=== PATIENT | male | born 1945 | race African-American/Black ===

== ENCOUNTER 2019-01-07 05:44 | Inpatient (IN) ==
--- NOTE | 2018-12-30 14:10 | EKG Report ---
Test Performed on : 12/30/2018 1:55:14 PM Test Reason : PAT Blood Pressure : / mmHG Vent. Rate : 079 BPM Atrial Rate : 079 BPM P-R Int : 160 ms QRS Dur : 080 ms QT Int : 358 ms P-R-T Axes : 078 065 071 degrees QTc Int : 410 ms Normal sinus rhythm. Normal ECG No previous ECGs available Confirmed by Braulio JENKINS, Riley ([id number]) on 12/31/2018 8:52:25 AM
[2018-12-30 14:45] LABS: BASO# 0.06 X1000 (0.0-0.2); BASO% 0.8 % (0.0-0.8); EOS# 0.11 X1000 (0.0-0.7); EOS% 1.4 % (0.0-10.0); HEMATOCRIT 26.5 % (42.0-52.0); HEMOGLOBIN 8.1 g/dL (14.0-18.0); LYMPH# 2.27 X1000 (1.2-3.4); LYMPH% 28.7 % (20.5-51.1); MCH 16.3 PG (27-31); MCHC 30.6 g/dL (33-37); MCV 53.4 FL (81-99); MONO# 0.41 X1000 (0.11-0.59); MONO% 5.2 % (1.7-9.3); MPV 9.5 FL (7.4-10.4); NEUT# 5.07 X1000 (1.4-6.5); NEUT% 63.9 % (42.2-75.2); PLT 655 X1000 (130-400); RBC 4.96 XMIL (4.7-6.1); RDW 22.1 % (11.5-14.5); WBC 7.92 X1000 (4.8-10.8)
[2018-12-30 15:16] LABS: EOS 1 % (1-10); LYMPHS 18 % (21-51); SEGS 76 % (42-75)
[2018-12-30 15:20] LABS: ANISOCYTOSIS 3+; HYPOCHROM 3+; MICROCYTOSIS 2+; TARGET CELLS 1+
[2019-01-07] MEDS ORDERED: ENTEREG ONE (06:22)
[2019-01-07] MEDS ORDERED: KEFZOL 1 GM/D5W 1 GM/50 ML IVPB ONE (06:22)
[2019-01-07] MEDS ORDERED: LR 1,000 ML ONE ×2 (06:22→06:48)
[2019-01-07] MEDS ORDERED: QUELICIN (DOSE) ONE (06:42)
[2019-01-07] MEDS ORDERED: XYLOCAINE-MPF 2% ONE (06:42)
[2019-01-07] MEDS ORDERED: FENTANYL ONE (06:43)
[2019-01-07] MEDS ORDERED: DIPRIVAN 1% ONE (06:43)
[2019-01-07] MEDS ORDERED: NORCURON ONE (06:44)
[2019-01-07] MEDS ORDERED: STERILE WATER INJ. ONE (06:44)
[2019-01-07] MEDS ORDERED: SENSORCAINE-MPF 0.5%/EPI 1:200,000 ONE (06:47)
[2019-01-07 07:23] LABS: BASO# 0.04 X1000 (0.0-0.2); BASO% 0.6 % (0.0-0.8); EOS# 0.09 X1000 (0.0-0.7); EOS% 1.4 % (0.0-10.0); HEMATOCRIT 23.7 % (42.0-52.0); HEMOGLOBIN 7.5 g/dL (14.0-18.0); LYMPH% 40.3 % (20.5-51.1); MCH 17.4 PG (27-31); MCHC 31.6 g/dL (33-37); MONO# 0.46 X1000 (0.11-0.59); MONO% 7.1 % (1.7-9.3); MPV 9.8 FL (7.4-10.4); NEUT# 3.26 X1000 (1.4-6.5); NEUT% 50.6 % (42.2-75.2); PLT 386 X1000 (130-400); RBC 4.31 XMIL (4.7-6.1); WBC 6.45 X1000 (4.8-10.8)
[2019-01-07] MEDS ORDERED: VERSED ONE (07:28)
--- NOTE | 2019-01-07 07:30 | EKG Report ---
Test Performed on : 01/07/2019 07:04:06 AM Test Reason : CAT CALL Blood Pressure : / mmHG Vent. Rate : 069 BPM Atrial Rate : 069 BPM P-R Int : 280 ms QRS Dur : 084 ms QT Int : 402 ms P-R-T Axes : 081 064 068 degrees QTc Int : 430 ms Sinus rhythm. with 1st degree AV block. Otherwise normal ECG When compared with ECG of 30-DEC-2018 13:55, DC interval has increased Confirmed by Braulio JENKINS, Riley ([id number]) on 01/07/2019 8:44:33 AM
[2019-01-07 07:36] LABS: ALB/GLOB RATIO 1.1; ALBUMIN 3.4 g/dL (3.5-5.0); CREATININE 1.4 mg/dL (0.7-1.2); POTASSIUM 4.3 mmol/L (3.5-5.1); TOTAL BILIRUBIN 0.27 mg/dL (0.20-1.00); TOTAL PROTEIN 6.6 g/dL (6.3-8.3)
--- NOTE | 2019-01-07 09:34 | Diag Imaging Result Doc PS360 ---
EXAM: CHEST-PORTABLE 01/07/2019 HISTORY: sob; anemia TECHNIQUE: AP portable at 0923 COMMENT: There are calcified nodes present in the right hilum. There is no evidence of acute cardiac or pulmonary disease. Compared to 12/11/2018 there has been no significant change in the appearance of the chest. IMPRESSION: No evidence of acute disease. Electronically signed by Usama Simmons 01/07/2019 9:31 AM
[2019-01-07] MEDS ORDERED: NS 1,000 ML IV SCH (10:00)
[2019-01-07] MEDS ORDERED: ZOFRAN IV PRN (10:00)
[2019-01-07] MEDS ORDERED: TYLENOL PO PRN (10:00)
[2019-01-07 10:08] LABS: PHOSPHORUS 3.3 mg/dL (2.7-4.5)
[2019-01-07 10:19] LABS: INR 1.1; PROTIME 15.1 Seconds (11.0-16.0); PTT 39.2 Seconds (22.3-41.8)
[2019-01-07 10:29] LABS: FREE T4 1.25 ng/dL (0.93-1.70); TSH 3.92 uIUmL (0.27-4.20)
[2019-01-07] MEDS ORDERED: NS 1,000 ML ONE (14:06)
--- NOTE | 2019-01-07 15:03 | CONSULTATION ---
DATE OF CONSULTATION: 01/07/2019 PRIMARY CARE PROVIDER: Elena Reyes. CONSULTING PHYSICIAN: Dang Morris MD. REASON FOR CONSULTATION: Abnormal labs and unstable preoperatively. HOSPITAL COURSE AND RECENT HISTORY: Mr. Lucas Dorsey is a 73-year-old - [place] male, who looks much younger than his stated age, presented to [facility] on 12/11/2018 with complaints of general abdominal pain but mostly in the right lower quadrant along with constipation. An x-ray did not show any type of constipation, but he had a chest, abdomen, and pelvis several days later performed, which showed focal marked thickening of the cecum with surrounding inflammatory changes and an adjacent loculated fluid collection consistent with a small pericolonic abscess, underlying neoplasm could not be excluded. Also, he may have even had fatty liver but that was not present in 2014. So he went for a consultation with Dr. Shipman, who put him on a clear liquid diet, did an EGD, but I do not believe it was performed here as we do not have the results here, but he states that it was done a couple of weeks ago by Dr. Shipman and was not informed of any finding. He was kept on a clear liquid diet. He was prophylactically on a proton pump inhibitor and Dr. Shipman recommended and referred him to Dr. Eleazar Morris. With the clear liquid diet, the symptoms essentially resolved with pain. Bowel movements were normal but a few days ago he says he threw up 1 time, it was Jell-O. He was lightheaded, dizzy, nauseous, and he has noticed that over the last year he is becoming much more tired, worn out, and fatigued but only recently has been having some lightheaded spells but not passing out. Today with Dr. Eleazar Morris he was planned for surgical intervention of the colon of that area and after having 4 IV sticks the patient had a temporary symptomatic almost described as vasovagal where his blood pressure dropped, he got hot, dizzy, then cold, felt like his tongue and throat were swelling, but he had not had any medication and then it resolved. Given these symptoms and his hemoglobin and hematocrit being found as low as 7.5 and 23.7 this morning, surgery is on hold for now. Will have him admitted and transfuse him at least 2 units of packed red blood cells and will put him back on a clear liquid diet but n.p.o. after midnight. He states that his bowel movements have been normal except for last night he was having diarrhea but this is without blood or any black coloration. He denies fever except for today when he had the hot spell and then the chills, and currently vital signs are stable. PAST MEDICAL HISTORY: 1. Iron-deficiency anemia. 2. BPH. 3. Hypertension. 4. Recently an area of thickening on the cecum with inflammatory changes, possible neoplasm, that is being worked up now. 5. Insomnia. PAST SURGICAL HISTORY: 1. EGD by Dr. Shipman a couple of weeks ago. 2. Back surgery. 3. Tonsillectomy. SOCIAL HISTORY: Currently smokes 3 cigarettes per day and at times more than that and at times he did quit but he has done this for at least 30+ years. Prior to 12/11, he was drinking 2-4 beers with 2-4 mixed drinks about 2 days in a week. Now, he is not drinking. He denies any illicit drug use. He is . He has 1 adult child, who is retired from [employer]. FAMILY HISTORY: Mother had dementia. Father in his 60s of a stroke, and he has 1 brother with bone cancer. ALLERGIES: No known drug allergies. HOME MEDICATIONS: 1. Ambien 2.5 mg p.o. nightly. 2. Iron supplementation 1 tablet p.o. daily. 3. Lisinopril 20 mg p.o. daily. 4. Multivitamin 1 tablet p.o. daily. 5. Omeprazole 40 mg p.o. daily. REVIEW OF SYSTEMS: A 14-point review of systems are complete and were all negative except for those mentioned above in HPI. He does have some tenderness in the right lower quadrant to mid lower quadrant with palpation but denies any nausea or any other symptoms at this time. PHYSICAL EXAMINATION: Vital signs: Temperature 97.3, heart rate 69, respiratory rate 18, blood pressure 114/62, O2 saturation 100% on room air. General: Mr. Lucas Dorsey is a 73-year-old -[place] male. He is in no acute distress. He is able to answer questions appropriately. HEENT: Atraumatic, normocephalic. Pupils equal, round, and reactive to light. Extraocular movements intact. Mucous membranes are dry. Sclera is pale. Neck: Trachea midline. Cardiovascular: S1, S2. Regular rate and rhythm. No rubs, gallops, or murmurs. No lower extremity edema. +2 dorsalis and radial pulses. Negative JVD and carotid bruits. Pulmonary: Clear to auscultate bilateral breath sounds. No accessory muscle use or work of breathing noted. GI: Soft, tender in the right lower to mid abdominal quadrant. Hyperactive bowel sounds x4. Soft. Nondistended. Extremities: Moves all extremities equally with full range of motion. Neurologic: Alert and oriented x3. Follows commands. Sensory is intact. Skin: Warm, dry, intact. LABORATORY DATA: White blood cells 6000, hemoglobin 7, hematocrit 23, platelet count 386. Sodium 128, potassium 4.3, BUN 12, creatinine is 1.4, glucose 148, calcium 9.0, bilirubin 0.27, AST 12, ALT 8, albumin 3.4, serum lactate 1.5. IMAGING: Chest x-ray: No evidence of acute disease. EKG: Normal sinus rhythm with a first-degree AV block, rate of 69, and QTc is 430. ASSESSMENT AND PLAN: 1. Area of the cecum that is abscess versus neoplasm, is suppose to go for surgery today by Dr. Morris. Had a symptomatic possible vasovagal reaction, and will hold off on surgery for now and that is the reason we were consulted. 2. Vasovagal reaction possibly due to having multiple IV sticks or due to the anemia. Those symptoms have since resolved and will monitor him on telemetry. 3. Iron-deficiency anemia. He was having diarrhea last night. He denies that there is any black stool or blood with it, so we will do iron studies and check stool for blood. He will get 2 units of packed red blood cells. 4. Benign prostatic hypertrophy noted. 5. Hypertension. Hold lisinopril for now, as he has got some possible mild acute kidney injury. 6. Likely acute kidney injury due to dehydration secondary to diarrhea last night. We will give him some IV fluids, recheck it in the morning. 7. Deep venous thrombosis prophylaxis, sequential compression devices due to the anemia. Dictated by GRACE Herrera for Vincent Mayes MD cc: GRACE Herrera MD R. Tyler Harney, MD Agree with above. the following is my own face to face assessment. Patient with near syncopal episode pre-op. slightly more anemic than his baseline and mild increase in creatinine suggesting some dehydration. little to suggest more concerning etiology at this point but will monitor on telemetry and check some other labs. will hydrate and transfuse and monitor. if no concerning findings are identified then likely ok to proceed with surgery in the morning. KELY
[2019-01-07 18:07] LABS: URINE SOURCE CLEAN CATCH
[2019-01-07 18:15] LABS: BILIRUBIN URINE NEGATIVE (NEGATIVE); BLOOD URINE NEGATIVE (NEGATIVE); COLOR YELLOW; GLUCOSE URINE NEGATIVE (NEGATIVE); KETONE URINE NEGATIVE (NEGATIVE); LEUKOCYTES URINE NEGATIVE (NEGATIVE); NITRITE URINE NEGATIVE (NEGATIVE); PH URINE 6.5; PROTEIN URINE NEGATIVE (NEGATIVE); TURBIDITY URINE CLEAR (CLEAR); UR EPITHELIAL CELLS <10 /HPF (<10); URINE BACTERIA NEGATIVE /HPF; URINE RBC <10 /HPF (<10); URINE WBC <10 /HPF (<10); UROBILINOGEN URINE NORMAL (NORMAL)
--- NOTE | 2019-01-07 19:26 | GENERAL SURGERY PROGRESS NOTE ---
DATE: 01/07/2019 SUBJECTIVE: The patient in the preoperative area this morning had a vagal episode. He was found to be anemic with elevated creatinine suggesting some degree of dehydration with hyponatremia. We elected to abort his operation today, transfuse him and hydrate him tonight and plan for an open right colectomy tomorrow. OBJECTIVE: On exam currently, his abdomen is soft. His integument is warm. He is alert. He feels much better. He is afebrile. He has had no tachycardia. His blood pressure is now 138/66, oxygen saturation 100% on room air. He did have around the time of his episode a systolic blood pressure that dropped to 90/50, but quickly rebounded to 120/67. His labs show a white count of 6, hematocrit of 23, creatinine 1.4, sodium 128. His glucoses are 140s to 160s. His LFTs are normal. Troponins are normal. Albumin level is 3.4. I reviewed the chest x-ray that shows no evidence of acute process. ASSESSMENT AND PLAN: This is a 73-year-old gentleman who was scheduled for a laparoscopic right colectomy for confirmed right cecal cancer. He was found to be anemic, dehydrated with electrolyte abnormalities and had a vagal episode. He has had no further events. He feels much better. We will transfuse 2 units of blood tonight and check his labs tomorrow and plan for an open right colectomy tomorrow. We discussed risks of bleeding, infection, damage to surrounding structures, anastomotic leak. He understands all this. We also discussed that we are going to forego a longer laparoscopic operation given his hemodynamic issues and pursue an open operation to more expeditiously take care of his issue. We will see him in the morning. cc: Dang Morris MD
[2019-01-07] MEDS ORDERED: AMBIEN PO SCH (21:00)
[2019-01-08] MEDS: PRILOSEC PO SCH ×2 (00:08→11:57)
[2019-01-08 07:10] LABS: BASO# 0.04 X1000 (0.0-0.2); BASO% 0.8 % (0.0-0.8); EOS# 0.18 X1000 (0.0-0.7); EOS% 3.4 % (0.0-10.0); HEMOGLOBIN 9.3 g/dL (14.0-18.0); LYMPH# 1.65 X1000 (1.2-3.4); LYMPH% 31.5 % (20.5-51.1); MCH 19.6 PG (27-31); MCHC 32.1 g/dL (33-37); MCV 61.1 FL (81-99); MONO% 7.6 % (1.7-9.3); NEUT# 2.96 X1000 (1.4-6.5); NEUT% 56.7 % (42.2-75.2); PLT 319 X1000 (130-400); RBC 4.75 XMIL (4.7-6.1); RDW 29.9 % (11.5-14.5); WBC 5.23 X1000 (4.8-10.8)
[2019-01-08 07:33] LABS: AGAP 9; ALBUMIN 3.2 g/dL (3.5-5.0); ALKALINE PHOSPHATASE 85 U/L (32-122); BUN 7 mg/dL (8-22); CALCIUM 8.5 mg/dL (8.8-10.2); CHLORIDE 102 mmol/L (98-107); COSMO 267; CREATININE 1.2 mg/dL (0.7-1.2); ESTIMATED GFR > 60; GLUCOSE 85 mg/dL (70-104); GOT 10 U/L (10-34); GPT 7 U/L (10-44); POTASSIUM 4.3 mmol/L (3.5-5.1); SODIUM 135 mmol/L (136-145); TCO2 24 mmol/L (25-35); TOTAL BILIRUBIN 0.68 mg/dL (0.20-1.00); TOTAL PROTEIN 6.3 g/dL (6.3-8.3)
[2019-01-08 07:55] LABS: HEMOGLOBIN A1C 4.8 % (4.8-6.0)
[2019-01-08] MEDS ORDERED: THERA M PLUS PO SCH (09:00)
[2019-01-08] MEDS ORDERED: ICAR-C PO SCH (09:00)
[2019-01-08 11:22] VITALS: BP 145/69
--- NOTE | 2019-01-08 13:43 | Diag Imaging Result Doc PS360 ---
EXAM: ABDOMEN FLAT/UPRIGHT 01/08/2019 HISTORY: abd pain TECHNIQUE: Flat and upright abdomen COMMENT: There is gas throughout the colon and small bowel. There is rotoscoliosis in the lower lumbar spine with convexity to the left. Degenerative disc changes are present at L4-5 and L5-S1. There is no evidence of organomegaly or mass. Compared to 12/11/2018 the appearance of the abdomen has not changed significantly. There is a rounded calcification over the right iliac bone which has been demonstrated to be a bone island on the CT of 12/22/2018. IMPRESSION: Nonspecific abdomen. Electronically signed by Usama Simmons 01/08/2019 1:41 PM
--- NOTE | 2019-01-09 19:04 | DISCHARGE SUMMARY ---
ADMISSION DATE: 01/07/2019 DISCHARGE DATE: 01/08/2019 DISCHARGE DIAGNOSES: 1. Iron deficiency anemia. 2. Benign prostatic hypertrophy . 3. Hypertension. 4. Possible colon neoplasm. 5. Syncopal episode vasovagal syncope. 6. Dehydration. 7. Hyponatremia . 8. Hyperglycemia . HOSPITAL COURSE: Patient is a 73-year-old white male with recently diagnosed pericolonic abscess versus mass. He was scheduled for colectomy but then had an episode of vasovagal syncope preop. On evaluation he was found to have slight worsening of his chronic anemia and mild dehydration. He was given 1 unit of blood with appropriate increase in hemoglobin and hematocrit. Hemoglobin 7.5 on admission and improved to 9.3. His creatinine was mildly elevated over baseline. With initial creatinine 1.4 with hydration has improved to 1.2 which is less than his baseline. Sodium also slightly low at 128 improved to 135 with fluids. No infection was identified. No cardiac events, dysrhythmias or other issue was found. Thyroid studies, BNP, troponin were all normal. The next day it was thought that he could likely go to surgery but due to illness of his surgeon this had to be deferred. After discussion with patient and surgery was decided to discharge patient and reschedule the procedure. Patient instructed to stay hydrated. Patient was mildly hyperglycemic on initial labs with glucose of 166 but this was never repeated and his A1c was 4.8 so he did not appear to be diabetic. DISCHARGE VITALS: Temperature 97.6 degrees, pulse 58, respirations 20, blood pressure 145/69, O2 saturation 100 percent on room air. DISCHARGE DIET: Regular. DISCHARGE MEDICATIONS: Ambien 2.5 mg p.o. at bedtime as needed, Icar C 1 tablet p.o. daily, lisinopril 20 mg p.o. daily, multivitamin daily. FOLLOWUP AND PLAN: Patient discharging home. Surgery to be rescheduled. Patient stay hydrated and continue with iron repletion. Greater than 30 minutes spent arranging discharge and counseling patient. cc: Dang Morris MD
== END 2019-01-08 14:50 | disposition home or self-care (01) | DRG 375 ==
LOC: SURHOLD 05:44 → EDSTATUS 09:30 → 4N 13:52
PROVIDERS: ADMIT Surgery; ATTEND Surgery
CPT/HCPCS: 36415; 36430; 71010; 71045; 74019; 74020; 80053; 81001; 82270; 82378; 82550; 82607; 82728; 82746; 82948; 83036; 83540; 83550; 83605; 83735; 83880; 84100; 84439; 84443; 84484; 85025; 85027; 85610; 85730; 86850; 86900; 86901; 86920; 87040; 93005; 93010; 94761; 94799; A9270; J0330; J0690; J2250; J3010; J7030; J7120; P9016; XXXXX

== ENCOUNTER 2019-01-11 04:53 | Inpatient (IN) ==
[2019-01-11] MEDS ORDERED: FENTANYL ONE (05:57)
[2019-01-11] MEDS ORDERED: DIPRIVAN 1% ONE (05:57)
[2019-01-11] MEDS ORDERED: NEO-SYNEPHRINE ONE ×2 (06:06→06:08)
[2019-01-11] MEDS ORDERED: STERILE WATER INJ. ONE ×2 (06:06→06:08)
[2019-01-11] MEDS ORDERED: NORCURON ONE (06:06)
[2019-01-11] MEDS ORDERED: ZOFRAN ONE (06:06)
[2019-01-11] MEDS ORDERED: ROBINUL ONE (06:06)
[2019-01-11] MEDS ORDERED: DECADRON ONE (06:06)
[2019-01-11] MEDS ORDERED: OFIRMEV 1000 MG/ISOTONIC SOLN 1,000 MG/100 ML BOTTLE ONE (06:06)
[2019-01-11] MEDS ORDERED: XYLOCAINE-MPF 2% ONE (06:06)
[2019-01-11] MEDS ORDERED: QUELICIN (DOSE) ONE (06:06)
[2019-01-11] MEDS ORDERED: NEOSTIGMINE ONE (06:07)
[2019-01-11] MEDS ORDERED: KEFZOL 1 GM/D5W 1 GM/50 ML IVPB ONE (06:34)
[2019-01-11] MEDS ORDERED: LR 1,000 ML ONE ×2 (06:34→09:46)
[2019-01-11] MEDS ORDERED: SODIUM CHLORIDE 0.9% 10 ML ONE (06:54)
[2019-01-11] MEDS ORDERED: MARCAINE 0.5% ONE (06:54)
[2019-01-11] MEDS ORDERED: EXPAREL 1.3% ONE (06:55)
[2019-01-11] MEDS ORDERED: ENTEREG ONE (07:05)
[2019-01-11] MEDS ORDERED: ATROPINE ONE (07:50)
[2019-01-11] MEDS ORDERED: DILAUDID ONE (07:56)
[2019-01-11 08:31] LABS: URINE SOURCE CATH
[2019-01-11 08:35] LABS: BILIRUBIN URINE NEGATIVE (NEGATIVE); BLOOD URINE NEGATIVE (NEGATIVE); COLOR YELLOW; GLUCOSE URINE NEGATIVE (NEGATIVE); KETONE URINE NEGATIVE (NEGATIVE); LEUKOCYTES URINE NEGATIVE (NEGATIVE); NITRITE URINE NEGATIVE (NEGATIVE); PROTEIN URINE 30 mg/dL (NEGATIVE); SP GRAVITY URINE 1.016; TURBIDITY URINE HAZY (CLEAR); UROBILINOGEN URINE NORMAL (NORMAL)
[2019-01-11 08:36] LABS: UR EPITHELIAL CELLS <10 /HPF (<10); URINE BACTERIA NEGATIVE /HPF; URINE WBC <10 /HPF (<10)
[2019-01-11] MEDS: DILAUDID ONE ×6 (09:54→23:18)
[2019-01-11] MEDS ORDERED: ZOFRAN IV PRN (10:52)
[2019-01-11] MEDS: OFIRMEV 1000 MG/ISOTONIC SOLN 1,000 MG/100 ML BOTTLE IV SCH ×2 (13:24→19:42)
--- NOTE | 2019-01-11 17:32 | OPERATIVE NOTE ---
PROCEDURE DATE: 01/11/2019 PREOPERATIVE DIAGNOSIS: Right cecal cancer. POSTOPERATIVE DIAGNOSIS: Right cecal cancer. PROCEDURE PERFORMED: Open right hemicolectomy with partial resection of abdominal wall and partial omentectomy. ANESTHESIA: General with a TAP block. INDICATIONS: This is a 73-year-old gentleman who had an ascending colon mass in the cecum consistent with an invasive adenocarcinoma. No evidence of widely metastatic disease. OPERATIVE FINDINGS: There was a large inflammatory tumor in the cecum adherent to the lateral sidewall of the abdomen with omental adhesions to this. Large adenopathy noted. No evidence of widely metastatic disease. There was focal perforation contained within the abdominal wall as well. OPERATIVE NOTE: Risks, benefits, alternatives discussed with patient and he consented to the procedure. He was seen preoperatively and surgical site was confirmed and marked. He was taken to the operating room and placed in supine position. General anesthesia induced without complication. Lewis catheter was placed. His abdomen was prepped with chlorhexidine solution after a TAP block was performed by Anesthesia with Exparel and he was draped in usual fashion. After time-out, we made a midline incision, carried this down through the fascia, incised the fascia, and opened the abdomen in an open controlled fashion, protecting the underlying bowel. We palpated the abdomen, there was no metastatic disease. We placed an Cruzito wound protector and begin mobilizing the tumor, which was adherent laterally. We did have to resect some of the posterior abdominal wall muscle to provide an en-bloc resection but we were able to do this successfully. We did encounter some purulent fluid that was contained within this pocket. Continued our mobilization around the hepatic flexure, mobilizing the right colon out of the wound, and then scored the mesentery, identifying the ileocolic pedicle. We divided this highly at the level the duodenum, protecting the duodenum. There were some nodes here that we identified, performing a complete lymphadenectomy here. Prior to dividing the ileocolic pedicle, we did confirm that we had maintained SMA pulse, we did. We continued our lymphadenectomy to our proximal and distal transection point with LigaSure and then using an 80 mm blue load staple we created a stapled [id number] common enterotomy and with a 2nd and 3rd fire, we closed the enterotomy and resected the specimen. The epiploic fat and omentum was mobilized off the colon prior to. Both the ileum and the colon had pulsatile bleeding that we controlled with sutures. We imbricated the corners and over sewed our staple line in an imbricating fashion, closed the mesenteric defect, placed it back in the right upper quadrant. Irrigated the abdomen, noting hemostasis. Everything aligned in neutral position with no kinking. The small bowel was placed in neutral position. The omentum was placed over this. We changed our gloves, removed the Cruzito, closed the fascia with a #1 running looped PDS suture. Skin was closed with surgical clips. A dressing was applied. He tolerated it well. Counts were correct. He was woken and transferred to recovery. I spoke with family. cc: Dang Morris MD MTDD
[2019-01-11] MEDS: PERIDEX MT SCH ×2 (19:42→23:18)
[2019-01-12] MEDS: OFIRMEV 1000 MG/ISOTONIC SOLN 1,000 MG/100 ML BOTTLE IV SCH ×2 (00:43→08:03)
[2019-01-12] MEDS: LR 1,000 ML IV SCH ×2 (00:43→01:41)
[2019-01-12] MEDS: ULTRAM PO PRN ×2 (05:08→20:01)
[2019-01-12] MEDS: PROTONIX PO SCH ×2 (05:08→07:28)
[2019-01-12 07:04] LABS: HEMATOCRIT 31.6 % (42.0-52.0); HEMOGLOBIN 10.3 g/dL (14.0-18.0); MCH 19.8 PG (27-31); MCHC 32.6 g/dL (33-37); MCV 60.9 FL (81-99); MPV 9.9 FL (7.4-10.4); RBC 5.19 XMIL (4.7-6.1); RDW 30.2 % (11.5-14.5); WBC 8.83 X1000 (4.8-10.8)
[2019-01-12 07:22] LABS: AGAP 7; BUN 5 mg/dL (8-22); CALCIUM 8.3 mg/dL (8.8-10.2); CHLORIDE 100 mmol/L (98-107); COSMO 261; CREATININE 1.2 mg/dL (0.7-1.2); ESTIMATED GFR > 60; GLUCOSE 91 mg/dL (70-104); POTASSIUM 4.4 mmol/L (3.5-5.1); SODIUM 132 mmol/L (136-145); TCO2 25 mmol/L (25-35)
[2019-01-12] MEDS: ENTEREG PO SCH ×2 (08:03→20:01)
[2019-01-12] MEDS: LOVENOX SUBQ SCH (08:03)
[2019-01-12] MEDS: MAG-OX PO SCH (08:03)
[2019-01-12] MEDS: PERIDEX MT SCH ×2 (08:03→20:01)
--- NOTE | 2019-01-12 09:13 | GENERAL SURGERY PROGRESS NOTE ---
DATE: 01/12/2019 SUBJECTIVE: He is doing well, tolerating clear liquids. The catheter has been removed. His pain is okay. Said he is really just sore. Did move about some last night. I reviewed his vital signs. LABS: Hematocrit is stable. White count is normal. Creatinine 1.2, sodium is 132. ASSESSMENT/PLAN: This is a 73-year-old gentleman status post right colectomy. He is doing well. We will continue to advance him. I have encouraged him to be out of bed. We will give him a soft diet today. He is on Ofirmev. He is on Entereg, Ultram. I am going to Hep-Lock his fluids. He is on magnesium oxide and, when he passes gas, I will let him go home. cc: Dang Morris MD
[2019-01-13] MEDS: ULTRAM PO PRN ×2 (01:15→18:32)
[2019-01-13] MEDS: PROTONIX PO SCH (05:59)
[2019-01-13] MEDS: PERIDEX MT SCH ×2 (09:21→20:21)
[2019-01-13] MEDS: ENTEREG PO SCH ×2 (09:21→20:20)
[2019-01-13] MEDS: LOVENOX SUBQ SCH (09:21)
[2019-01-13] MEDS: MAG-OX PO SCH (09:21)
--- NOTE | 2019-01-13 19:52 | GENERAL SURGERY PROGRESS NOTE ---
DATE: 01/13/2019 SUBJECTIVE: Possibly some flatus overnight. He is doing well, voiding, tolerating a diet, some belching, a little distention, but he is ambulating. Pain is controlled. He is not taking any pain medication. No fevers. No tachycardia. OBJECTIVE: Vital signs: Blood pressure 160/69. General: He is alert. Abdomen: Soft. Incision is intact. No cellulitis. I reviewed his labs. ASSESSMENT AND PLAN: A 73-year-old gentleman status post right colectomy is doing well. When he has return of bowel function, we will let him go home. I have encouraged him to be out of bed and ambulating. We have hep-locked his fluids. cc: Dang Morris MD
[2019-01-14] MEDS: PROTONIX PO SCH (06:10)
[2019-01-14] MEDS: ENTEREG PO SCH ×2 (08:51→20:31)
[2019-01-14] MEDS: MAG-OX PO SCH (08:51)
[2019-01-14] MEDS: PERIDEX MT SCH ×2 (08:51→20:31)
[2019-01-14] MEDS: LOVENOX SUBQ SCH (08:51)
--- NOTE | 2019-01-14 18:13 | GENERAL SURGERY PROGRESS NOTE ---
DATE: 01/14/2019 SUBJECTIVE: No fevers, no tachycardia. He is a little more distended with some nausea. OBJECTIVE: Abdomen is soft. Incision intact. He is mildly distended. LABORATORY: I reviewed his labs. His pathology shows a T3 lesion with one lymph node positive at 37, margins negative. ASSESSMENT AND PLAN: This 43-year-old gentleman status post right colectomy for large T3 N1 colon carcinoma. He has an ileus, we are awaiting this resolved. Encouraged him to be out of bed and ambulate. Otherwise, he is doing well. His exam is benign. We will let him go home with return of bowel function. He is on Entereg, Lovenox. He is on magnesium supplementation. cc: Dang Morris MD
[2019-01-15] MEDS: PROTONIX PO SCH (06:12)
[2019-01-15] MEDS: PERIDEX MT SCH (09:47)
[2019-01-15] MEDS: LOVENOX SUBQ SCH (09:47)
[2019-01-15] MEDS: MAG-OX PO SCH (09:47)
[2019-01-15] MEDS: ENTEREG PO SCH (09:47)
[2019-01-15 11:42] VITALS: BP 158/80
--- NOTE | 2019-02-01 20:46 | DISCHARGE SUMMARY ---
ADMISSION DATE: 01/11/2019 DISCHARGE DATE: 01/15/2019 ADMITTING DIAGNOSIS: Right cecal cancer. POSTOPERATIVE DIAGNOSIS: Right cecal cancer. PROCEDURE PERFORMED: 01/11/2019: Open right hemicolectomy with partial resection of abdominal wall and partial omentectomy. Pathology showed a T3 tumor of the cecum with 1 out of 37 lymph nodes positive for metastatic carcinoma. HOSPITAL COURSE: The patient was seen preoperatively and was cleared by Anesthesia for above procedure. For details, please see dictated operative note. Postoperatively, he was admitted to my service. He was advanced per the ERA as pathway. He was continued on DVT prophylaxis and PPIs, both with sequential compression devices and Lovenox. He developed return of bowel function on 01/13/2019, but remains somewhat immobile and had a little more distention and nausea on the , but on the he had complete return of bowel function. His abdomen was soft, his incision was intact, he was tolerating a diet, and his pain was controlled with oral medications. He was felt safe for discharge. Follow up appointment with me in 1 week. DISPOSITION: Home to self-care. DISCHARGE CONDITION: Good. DISCHARGE INSTRUCTIONS: Given in written and verbal formats. DISCHARGE MEDICATIONS: He will continue taking his home medication. He was given a prescription for [place] and Colace. cc: Dang Morris MD
== END 2019-01-15 15:28 | disposition home or self-care (01) | DRG 329 ==
LOC: SURHOLD 04:53 → 4N 08:42
PROVIDERS: ADMIT Surgery; ATTEND Surgery
CPT/HCPCS: 80048; 81001; 85027; 88309; 94760; 94761; 94799; 97162; A9270; C9290; J0131; J0330; J0461; J0690; J1100; J1170; J1650; J2370; J2405; J3010; J7120; S0020